=== PATIENT | female | born 1950 | race Caucasian/White ===

== ENCOUNTER 2018-02-15 00:58 | Emergency (ER) | payer MEDICARE, BC ==
[~2018-02-15] VITALS: Ht 162.6 cm; Wt 100.0 kg
[~2018-02-15 00:58] MED LIST: ALLO100T PO; ASPI-1009 PO; ATOR40TA PO; CALC-793 PO; CYAN-19 PO; CYCL1DRO EACHEYE; DESV100T PO; DIPH25CA83 PO; DIVA-81 PO; DOCU-20 PO; LEVO25TA2 PO; LUBI24CA5 PO; MEGA RED PO; PROP40TA72 PO; QUET300T3 PO; RABE20TA18 PO; SERT100T PO; TRI150T PO; ZOLP10TA5 PO; [UNRECOGNIZED DRUG - MIXTURE] SL; [UNRECOGNIZED DRUG - OTHER] PO
[2018-02-15] MEDS ORDERED: HYDROcodone/acetaminophen 10/325mg tab PO ONE (02:25)
[2018-02-15] MEDS ORDERED: HYDR-3965 PO (03:24)
[2018-02-15 03:37] VITALS: BP 115/64
== END 2018-02-15 03:40 | disposition home or self-care (01) ==
LOC: ER 00:59
DX: S00.83XA Contusion of other part of head, initial encounter (principal); S80.212A Abrasion, left knee, initial encounter; S50.12XA Contusion of left forearm, initial encounter; I10 Essential (primary) hypertension; K21.9 Gastro-esophageal reflux disease without esophagitis; E78.00 Pure hypercholesterolemia, unspecified; Z88.2 Allergy status to sulfonamides; Z79.82 Long term (current) use of aspirin; Z79.899 Other long term (current) drug therapy; W01.190A Fall on same level from slipping, tripping and stumbling with subsequent striking against furniture, initial encounter; Y93.89 Activity, other specified; Y92.89 Other specified places as the place of occurrence of the external cause; Y99.8 Other external cause status
CPT/HCPCS: 70450; 70486; 99284

== ENCOUNTER 2024-03-10 15:19 | Emergency (ER) | payer MEDICARE, BC ==
[~2024-03-10] VITALS: Ht 162.6 cm; Wt 91.8 kg
[~2024-03-10 15:19] MED LIST changes: -CYAN-19 PO; +CYAN100019 PO; -DOCU-20 PO; +DOCU-348 PO; -QUET300T3 PO; +QUET300T5 PO
[2024-03-10 15:26] VITALS: TEMP 98.1
[2024-03-10] MEDS: naproxen 500mg tablet PO ONE (18:36)
[2024-03-10 18:49] VITALS: BP 141/78; PULSE 78; RESP 14; O2SAT 99
== END 2024-03-10 18:51 | disposition home or self-care (01) ==
LOC: ER 15:20
DX: R60.0 Localized edema (principal); M79.652 Pain in left thigh; E78.00 Pure hypercholesterolemia, unspecified; I10 Essential (primary) hypertension; K21.9 Gastro-esophageal reflux disease without esophagitis; F41.9 Anxiety disorder, unspecified; F32.A Depression, unspecified; Z98.890 Other specified postprocedural states; Z88.2 Allergy status to sulfonamides; Z79.899 Other long term (current) drug therapy; Z79.82 Long term (current) use of aspirin
CPT/HCPCS: 93971; 99284

== ENCOUNTER 2025-05-14 11:41 | Emergency (ER) | payer MEDICARE, BC ==
[~2025-05-14] VITALS: Ht 162.6 cm; Wt 84.5 kg
[~2025-05-14 11:41] MED LIST changes: +AMLO2.5T2 PO; -ASPI-1009 PO; -CALC-793 PO; -CYAN100019 PO; -CYCL1DRO EACHEYE; -DIPH25CA83 PO; -DOCU-348 PO; +FERR325T28 PO; -LEVO25TA2 PO; -LUBI24CA5 PO; -MEGA RED PO; +PANT40TA54 PO; -PROP40TA72 PO; +QUET-1 PO; -QUET300T5 PO; -RABE20TA18 PO; -SERT100T PO; +VITC500T PO; -ZOLP10TA5 PO; -[UNRECOGNIZED DRUG - MIXTURE] SL; -[UNRECOGNIZED DRUG - OTHER] PO
[2025-05-14 11:42] VITALS: BP 162/63; PULSE 102; RESP 16; O2SAT 96
[2025-05-14] MEDS: LIDOcaine 1% W/epiNEPHrine 1:100,000 20ml vial SQ ONE (12:36)
--- NOTE | 2025-05-14 13:04 | Physician Documentation ---
History of Present Illness ~ Chief Complaint: See Chief Complaint Stated Complaint: LEG WOUND Time Seen by MD: 12:08 Primary Medical Doctor: NEIL HPI 74 f patient presents to the ED with a complaint of a laceration which she incurred from her dog accidentally clawing her right lower extremity. Bleeding has not stopped. She denies taking any blood thinners. Day of Onset: May 14, 2025 Tetanus witin 5 years: No Medication Reconciliation Allergies: Coded Allergies: Sulfa (Sulfonamide Antibiotics) (Verified Allergy, Unknown, 05/14/25) Scheduled Allopurinol* (Allopurinol*), 3 TAB PO DAILY, (Reported) Amlodipine* (Norvasc*), 2 TAB PO DAILY, (Reported) Ascorbic Acid* (Vitamin C*), 1 TAB PO DAILY, (Reported) Atorvastatin Calcium* (Lipitor*), 1 TAB PO HS, (Reported) Desvenlafaxine Succinate (Pristiq ER), 1 TABLET PO DAILY, (Reported) Divalproex Sodium ER* (Depakote ER*), 2 TAB PO TID, (Reported) Ferrous Sulfate* (Ferrous Sulfate*), 1 TAB PO BID, (Reported) Oxcarbazepine (TRILEPTAL tablet), 300 MG PO TID, (Reported) Pantoprazole Sodium (Pantoprazole Sodium), 40 MG PO BID, (Reported) Quetiapine Fumarate* (Seroquel*), 2 TAB PO HS, (Reported) Past Medical History Past Medical History: High Cholesterol, Hypertension, Pneumonia, GERD, Gout, Anxiety, Bipolar, Depression Past Surgical History: other Patient History: FH: asthma FATHER (HEART ATTACK ), FH: breast cancer MOTHER, FH: heart disease FATHER (HEART ATTACK ), Alcohol Use: None Lives with: Spouse Lives In: Home Review of Systems All Other Systems at this time: Reviewed and Negative ROS As stated above in the HPI, otherwise all systems are reviewed and negative. Physical Exam Vital Signs: Temperature: 97.0, Source: Temporal, Heart Rate: 102, Respiratory Rate: 16, BP: 162/63, Pulse Oximetry: 96, Weight: 84.550 Oxygen Flow Rate: 0 Physical Exam General: Alert, no apparent distress. Extremities: Normal range of motion, no deformity. 4 cm laceration in the medial aspect of the right calf Neurologic: Oriented x4. Psychiatric: Normal mood and affect. Skin: Normal color, warm and dry. No edema, no ecchymosis. Procedures Laceration Repair : Anesthesia: Lidocaine w/ Epi Irrigated w/ Saline (mls): 250 Foreign Body: not identified Wound Repaired With: sutures Suture Size/Type: 3-0 Number of Superficial Sutures: 5 Tolerated Procedure Well?: yes, no complications Progress Results/Orders Results/Orders Orders - VINAY GONZALEZ NP Laceration/I&D Tray Set Up (05/14/25 ) Completed Orders - VINAY GONZALEZ NP Lidocaine 1% W/Epi 1:100,000 (Xylocaine (05/14/25 12:25) Vital Signs 05/14/25 11:42 Temp 97.0 Pulse 102 Resp 16 B/P (MAP) 162/63 Pulse Ox 96 O2 Flow Rate 0 Medical Decision Making Findings Laceration repair was successful without incident. Patient tolerated procedure well. Did not tightly suture the wound to allow for drainage secondary to dog scratch Departure Disposition: 01 HOME / SELF CARE / HOMELESS Impression: Primary Impression: Laceration Condition: Improved Discharge Instructions: Animal Bite, Adult, [id number] Additional Instructions: The antibiotics as prescribed from prevent infection. you can have sutures removed in 7-10 days Referrals: NO PRIMARY CARE PROVIDER (PCP) Prescriptions Amox Tr/Potassium Clavulanate (Augmentin 875-125 Tablet) 1 Each Tablet 1 TAB PO Q12H for 10 Days, #20 TAB Prov: VINAY GONZALEZ NP 05/14/25 Signature Scribe Signature: be Attestation: Scribed for Vinay Gonzalez Np by Vinay Bustamante NP . 05/14/25 13:29 VINAY GONZALEZ NP May 14, 2025 13:04
[2025-05-14] MEDS ORDERED: AMOX-117 PO (13:29)
[2025-05-14 13:49] VITALS: TEMP 97
== END 2025-05-14 13:50 | disposition home or self-care (01) ==
LOC: ER 11:41
DX: S81.811A Laceration without foreign body, right lower leg, initial encounter (principal); F31.9 Bipolar disorder, unspecified; E78.00 Pure hypercholesterolemia, unspecified; I10 Essential (primary) hypertension; K21.9 Gastro-esophageal reflux disease without esophagitis; F41.9 Anxiety disorder, unspecified; Z87.01 Personal history of pneumonia (recurrent); Z88.2 Allergy status to sulfonamides; Z79.899 Other long term (current) drug therapy
CPT/HCPCS: 12002; 99284; A6258; A6402; A6449; Z7610